=== PATIENT | male | born 1965 | race Caucasian/White ===

== ENCOUNTER → 2017-04-03 | Outpatient (CLI) | payer OTHER ==
[2017-04-03] VITALS (7 sets, daily range): BP systolic 109–128; BP diastolic 67–75; PULSE 62–82; RESP 20
[~2017-04-03] MED LIST: DIAB1.25 PO; GLUCTAB PO; IOHEXOL 350 MG/ML 10 ML VIAL (for RAD DIAG) IVCONTRAST ONE; LISI2.5T3 PO; METOPROLOL TARTRATE 5 MG/5 ML VIAL ONE; NITROGLYCERIN 0.4 MG SL 25 TABS/BTL SL ONE; PRIL10CA PO
--- NOTE | 2017-04-03 16:06 | RADRPT ---
EXAM DATE/TIME: 04/03/2017 14:16 [place] COMPARISON: No previous studies available for comparison. INDICATIONS : Abnormal EKG IV CONTRAST: 90 cc Omnipaque 350 (iohexol) IV RADIATION DOSE: 13.80 CTDIvol (mGy) MEDICAL HISTORY : Hypertension. Diabetes SURGICAL HISTORY : None. ENCOUNTER: Initial ACUITY: 1 day PAIN SCALE: 0/10 LOCATION: chest CORONARIES TECHNIQUE: Volumetric scanning was obtained through the heart. Images were acquired on a multislice multiple ro w detector helical scanner timed for acquisition during peak arterial contrast. Images were reconstr ucted using a retrospective gating algorithm including single sector and multi-sector algorithms at m ultiple phases of the cardiac cycle. Images were interpreted using a combination of 2D and 3D visual ization modes including curved planar reformation, thin slab maximum intensity projection and volume rendering. Using automated exposure control and adjustment of the mA and/or kV according to patient size, radiation dose was kept as low as reasonably achievable to obtain optimal diagnostic quality im ages. DICOM format image data is available electronically for review and comparison. FINDINGS: VESSEL ANALYSIS: DOMINANCE: The coronary system is right dominant. LEFT MAIN: Normal vessel without calcification or stenosis. LAD: Normal-sized vessel with a single calcified plaque at its origin. There is a punctate area of so ft plaque as well. This is not hemodynamically significant. CIRCUMFLEX: Normal vessel without calcification or stenosis. RCA: Normal vessel without calcification or stenosis. OTHER: None. CONCLUSION: 1. There is a single punctate calcified atherosclerotic plaque with minimal associated sulcal plaque in the proximal LAD. This is not of hemodynamic significance. The remainder the coronary circulation is clean. [place] Negron MD on April 03, 2017 at 16:02 Board Certified Radiologist. This report was verified electronically.
== END ==
LOC: HRAD 12:27
DX: R94.30 Abnormal result of cardiovascular function study, unspecified (principal)
CPT/HCPCS: 75574; Q9967